=== PATIENT | female | born 1980 | race Caucasian/White ===

== ENCOUNTER 2018-01-20 16:58 | Emergency (ER) | payer MEDICAID ==
[~2018-01-20] VITALS: Ht 154.9 cm; Wt 99.8 kg
[2018-01-20 17:05] VITALS: Ht 154.9 cm; Wt 99.8 kg
[2018-01-20 17:37] LABS: BASOPHIL % 0.6 % (0-2); RED CELL DISTRIBUTION WIDTH 13.2 % (11.5-14.5)
[2018-01-20 17:38] LABS: PLATELET COUNT 426 x10^3mcL (130-400)
[2018-01-20 17:45] LABS: CALCIUM 8.8 mg/dL (8.5-10.1); CARBON DIOXIDE 30.5 mmol/L (21-32); CHLORIDE SERUM 102 mmol/L (98-107); CREATININE SERUM 0.7 mg/dL (0.6-1.0); GFR1 > 60 mL/min; GLUCOSE SERUM 91 mg/dL (74-106); POTASSIUM SERUM 3.9 mmol/L (3.5-5.1); SODIUM SERUM 138 mmol/L (136-145)
[2018-01-20 17:50] LABS: ALBUMIN 3.5 g/dL (3.4-5.0); ALKALINE PHOSPHATASE 73 U/L (46-116); ALT/SGPT 36 U/L (14-59); AST/SGOT 26 U/L (15-37); BILIRUBIN TOTAL 0.4 mg/dL (0.20-1.00); LIPASE 89 IU/L (73-393); TOTAL PROTEIN, SERUM 8.1 g/dL (6.4-8.2)
[2018-01-20 19:23] VITALS: BP 119/74
== END 2018-01-20 19:23 | disposition home or self-care (01) ==
LOC: ED 16:58
PROVIDERS: Emergency Medicine
DX: K29.00 Acute gastritis without bleeding (principal); E86.0 Dehydration; L93.0 Discoid lupus erythematosus
CPT/HCPCS: J1885; J2405; J7030

== ENCOUNTER 2019-08-12 17:18 | Emergency (ER) | payer MEDICAID, OTHER ==
[~2019-08-12] VITALS: Ht 157.5 cm; Wt 102.1 kg
[2019-08-12 17:31] VITALS: BP 130/83
[2019-08-12 18:04] LABS: BASOPHIL % 0.4 % (0-2)
[2019-08-12 18:07] LABS: PLATELET COUNT 403 x10^3mcL (130-400)
[2019-08-12 18:10] LABS: CALCIUM 8.7 mg/dL (8.5-10.1); CARBON DIOXIDE 26.5 mmol/L (21-32); CHLORIDE SERUM 105 mmol/L (98-107); CREATININE SERUM 0.7 mg/dL (0.6-1.0); GFR1 > 60 mL/min; GLUCOSE SERUM 114 mg/dL (74-106); SODIUM SERUM 140 mmol/L (136-145)
== END 2019-08-12 18:46 | disposition home or self-care (01) ==
LOC: ED 17:18
PROVIDERS: Emergency Medicine
DX: H53.2 Diplopia (principal)
CPT/HCPCS: 36415

== ENCOUNTER 2019-10-15 19:30 | Emergency (ER) | payer MEDICAID, OTHER ==
[~2019-10-15] VITALS: Ht 157.5 cm; Wt 96.6 kg
[2019-10-15 19:40] VITALS: Ht 157.5 cm; Wt 96.6 kg
[2019-10-15 21:30] VITALS: BP 130/78
== END 2019-10-15 21:30 | disposition home or self-care (01) ==
LOC: ED 19:30
DX: J10.1 Influenza due to other identified influenza virus with other respiratory manifestations (principal)
CPT/HCPCS: 87804; J1885